=== PATIENT | male | born 1985 | race Caucasian/White ===

== ENCOUNTER 2017-11-12 05:06 | Emergency (ER) | payer OTHER ==
--- NOTE | 2017-11-12 06:05 | EDPHY ---
H & P Stated Complaint: ETOH, left eye lac Time Seen by Provider: 11/12/17 05:17 HPI/ROS: Chief Complaint: Alcohol intoxication, fall HPI: 32-year-old male was out drinking with friends this morning. Patient had a mechanical fell all an hit the left side of his face. Patient is amnestic to events in is not really members happening. States the last thing he remembers is drinking 3-4 alcoholic drinks last night. Is complaining of some facial pain and headache. No neck pain. No numbness or tingling. Some nausea, no vomiting. Denies any other injuries. ROS: 10 point Review of Systems is negative except as noted in the HPI. PMH: Denies Social History: No smoking, occasional alcohol, no recreational drug use Family History: non-contributory Physical Exam: Gen: Awake, Alert, smells strongly of alcohol, Airway intact HEENT: Head: There is a 1 cm jagged laceration above his left eyebrow, no deep tissue or bony involvement, no step-offs Eyes: PERRLA, EOMI Nose: No epistaxis Mouth: Normal dentition, Airway patent Face: No deformity Neck: non-tender, no stepoff, Full ROM without pain Chest: non-tender, lungs CTA Heart: normal heart tones Abd: soft, non-tender, atraumatic Pelvis: non-tender, stable to AP and Lateral compression Back: atraumatic, no midline tenderness Ext: atramatic, full ROM Skin: no rash Neuro: CN II-XII intact, Strength 5/5 in all extremities, sensation intact in all extremities - Personal History Current Tetanus/Diphtheria Vaccine: Yes - Medical/Surgical History Hx Asthma: No Hx Chronic Respiratory Disease: No Hx Diabetes: No Hx Cardiac Disease: No Hx Renal Disease: No Hx Cirrhosis: No Hx Alcoholism: No Hx HIV/AIDS: No Hx Splenectomy or Spleen Trauma: No Other PMH: denies - Social History Smoking Status: Current every day smoker Constitutional: Initial Vital Signs Temperature (C) 36.6 C 11/12/17 05:09 Heart Rate 103 H 11/12/17 05:09 Respiratory Rate 18 11/12/17 05:09 Blood Pressure 126/102 H 11/12/17 05:09 O2 Sat (%) 95 11/12/17 05:09 O2 Delivery Mode Room Air Allergies/Adverse Reactions: No Known Allergies Allergy (Unverified 11/12/17 05:12) Home Medications: Medication Instructions Recorded NK [No Known Home Meds] 11/12/17 Medical Decision Making - Diagnostics Imaging Results: CT scan of the head is negative for acute traumatic injury per Dr. Coleman. Imaging: Discussed imaging studies w/ scallop binder Radiologist Procedures: Procedure: Laceration repair. Verbal consent was obtained from the patient. The 1 cm laceration on the left forehead was anesthetized in the usual fashion. The wound was irrigated, draped and explored to its base with a gloved finger. There were no deep structures involved. No tendon injury was identified. The wound was repaired with 3, 6-0 Ethilon simple interrupted sutures. The wound repair was uncomplicated facial laceration repair. The procedure was performed by myself. ED Course/Re-evaluation: CT scan of the head done because patient is intoxicated has facial trauma and has no recollection of events. CT scan of brain is negative. Lacerations been repaired. Patient is otherwise appropriate. He is medically cleared for the [facility]. Departure - Departure Disposition: Home, Routine, Self-Care Clinical Impression: Laceration, Alcohol intoxication Condition: Good Instructions: Facial Laceration (ED), Alcohol Intoxication (ED) Additional Instructions: Sutures need to be removed in 5 days, you may return to the emergency department or follow up with her primary care physician to have this done. Return emergency department for increasing headache, uncontrolled nausea vomiting, neck pain, numbness, tingling, weakness, or any other concerns. MEDICALLY CLEARED FOR THE [facility] Referrals: Abdirizak Rogers MD [Primary Care Provider] - As per Instructions
[2017-11-12 07:22] VITALS: BP 125/74; PULSE 99; RESP 16; TEMP 97.7; O2SAT 98
== END 2017-11-12 07:22 | disposition home or self-care (01) ==
LOC: EDUNIT#
PROC: 0HQ1XZZ Repair Face Skin, External Approach (ICD-10-PCS; principal; 2017-11-12)
DX: S01.81XA Laceration without foreign body of other part of head, initial encounter (principal); F10.129 Alcohol abuse with intoxication, unspecified; F17.200 Nicotine dependence, unspecified, uncomplicated; W18.09XA Striking against other object with subsequent fall, initial encounter

== ENCOUNTER → 2017-11-22 | Outpatient (CLI) | payer OTHER | LOC: BMCIMAGING 11:57 | PROVIDERS: ATTEND Internal Medicine | DX: Z13.828 Encounter for screening for other musculoskeletal disorder (principal) ==